=== PATIENT | female | born 1980 | race Caucasian/White ===

== ENCOUNTER 2016-09-10 13:27 | Emergency (ER) | payer OTHER ==
[~2016-09-10 13:27] MED LIST: IBUP600 PO; PERI8.6T PO; PREN0.01 PO
[2016-09-10 14:16] VITALS: BP 129/68; PULSE 80
[2016-09-10] MEDS ORDERED: CALNTAB (14:29)
--- NOTE | 2016-09-10 15:12 | PD ---
HPI Chief Complaint Spotting cramping Date Seen: Sep 10, 2016 Travel History International Travel<30 Days: No Contact w/Intl Traveler<30Days: No Known Affected Area: No History of Present Illness HPI This patient is a 36-year-old white female at [address] Zamora for care presents complaining of cramping and spotting she noticed last night and today. She denies period like bleeding or severe pain no leakage of fluid no discharge no itching odor or irritation. heart tones in the 140s by ultrasound today at the bedside Para: 1 : 2 History Obstetric History Obstetric History One vaginal delivery Social History Alcohol Use: No Tobacco Use: No Substance Abuse: No Allergies-Medications (Allergen,Severity, Reaction): Coded Allergies: No Known Allergies (Unverified , 09/10/16) Home Meds Active Scripts Sennosides-Docusate Sodium (Desi-Colace 8.6-50 mg)1 Tab Tab2 Tab PO Q12H PRN ( CONSTIPATION) #30 TAB Prov:Sharona Chandler MD 09/23/15 Ibuprofen (Motrin 600 Mg Tab)600 Mg [id number] Mg PO Q6H PRN ( CRAMPING) # 30 TAB Prov:Sharona Chandler MD 09/23/15 Reported Medications Vitamin (Calna)1 Tab Tab 09/10/16 Multivit/Min/Fol Ac/Iron/Pren ( Vit ( Plus)) Tab1 Tab PO DAILY 09/21/15 Review of Systems General / Constitutional: No: Fever, Weight Gain, Chills, Other Eyes: No: Diploplia, Blurred Vision, Visual changes, Pain, Photophobia HENT: No: Headaches, Vertigo, Lightheadedness Cardiovascular: No: Irregular Rhythm, Chest Pain or Discomfort, Palpitations, Tachycardia, Syncope, Varicosities, Edema, Cyanosis Respiratory: No: Cough, Short of Breath, Other Gastrointestinal: No: Nausea, Vomiting, Diarrhea Genitourinary: Vaginal Bleeding, No: Decreased Urinary Output, Oliguria Musculoskeletal: No: Limited ROM, Weakness, Cramping, Edema, Pain Skin: No Rash, No Itching, No Dryness, No Lumps, No Change in Pigmentation, No Change in Nails, No Alopecia, No Lesions Neurologic: No: Weakness, Dizziness, Syncope, Focal Abnormalities, Coordination Problem, Headache, Slurred Speech, Seizures Psychiatric: No: Depression, Suicidal Ideations, Homicidal Ideation Endocrine: No: Heat Intolerance, Cold Intolerance, Polydipsia, Polyuria, Other Physical Exam Vital Signs Date Time Temp Pulse Resp B/P Pulse Ox O2 Delivery O2 Flow Rate FiO2 09/10/16 14:16 80 129/68 Narrative GENERAL: Well-nourished, well-developed patient. SKIN: Warm and dry. HEAD: Normocephalic and atraumatic. EYES: No scleral icterus. No injection or drainage. ENT: No nasal drainage noted. Mucous membranes pink. Airway patent. NECK: Supple, trachea midline. No JVD. CARDIOVASCULAR: Regular rate and rhythm without murmurs, gallops, or rubs. RESPIRATORY: Breath sounds equal bilaterally. No accessory muscle use. BREASTS: Bilateral exam showed no masses , no retractions, no nipple discharge. ABDOMEN/GI: Abdomen soft, non-tender, bowel sounds present, no rebound, no guarding Gravid to [-19] weeks size Fundal Height: [-At umbilicus] GENITOURINARY: External Genitalia: intact and normal in appearance, no sign of bleeding or laceration, vagina is within normal limits no discharge cervix appears infection free and is closed thick and high BUS glands: [-] Cervix: [-] Closed, no bleeding noted Dilatation: [-] Closed Effacement: [-] thick Station: [-3] Presentation: [-vtx by US] Membranes: [intact ] Uterine Contractions: [-]none FHT's: Baseline: [144-] ] EXTREMITIES: No cyanosis or edema. BACK: Nontender without obvious deformity. No CVA tenderness. NEUROLOGICAL: Awake and alert. Motor and sensory grossly within normal limits. Five out of 5 muscle strength in all muscle groups. Normal speech. Data Data Orders Vital Signs (Adult) .ON ADMISSION (09/10/16 14:20) ^ Labor Status (09/10/16 14:20) Urinalysis - C+S If Indicated (09/10/16 14:20) Labs Ultrasound done at the bedside to rule out placenta previa. Placenta is posterior grade 0, not close to the cervical os, fetus is vertex, size equal dates ,active baby normal amniotic fluid MDM Interpretation(s) The patient is a 36-year-old white female followed Dr. Zamora for care now 19 weeks gestation presents with some spotting and cramping noted the last night and today. She has no ector blood per vagina speculum exam was done shows no blood in the vagina whatsoever cervix is normal there is no sign of infection or friable bleeding, urinalysis negative, ultrasound done to bedside showed posterior placenta and no previa noted normal 19 week fetus normal amniotic fluid volume and activity Plan Plan patient be discharged home to observe for any change in status her bleeding issues. She was informed that intercourse, activity, pelvic checks could all stimulated bleeding issue infection yeast infections etc. can cause bleeding, Diagnosis Diagnosis: Primary Impression: Spotting affecting in second trimester Additional Impression: Abdominal cramping affecting Disposition: DISCHARGE HOME Condition: Stable Rohit Ramos II, MD Sep 10, 2016 15:12
[2016-09-10 15:52] LABS: BACTERIA, URINE OCC /hpf; BLOOD, URINE NEG (NEG); GLUCOSE,URINE NEG (NEG); KETONE, URINE NEG (NEG); MUCUS URINE FEW /lpf (OCC); NITRITE,URINE NEG (NEG); SQUAMOUS EPITHELIAL CELL URINE 1 /hpf (0-5); URINE COLOR LIGHT-YELLOW (YELLW/STRAW)
[2016-09-10 15:53] LABS: COMMENT (UR) CULT NOT INDICATED; CULTURE IF INDICATED CULT NOT INDICATED
== END 2016-09-10 15:25 | disposition home or self-care (01) ==
LOC: HOBED 13:27
DX: O26.852 Spotting complicating pregnancy, second trimester (principal); Z3A.19 19 weeks gestation of pregnancy
CPT/HCPCS: 76815; 81001

== ENCOUNTER 2017-01-25 18:08 | Inpatient (IN) | payer OTHER ==
[~2017-01-25] VITALS: Ht 165.1 cm; Wt 94.3 kg
[~2017-01-25 18:08] MED LIST changes: +CALNTAB
[2017-01-25] MEDS ORDERED: SODIUM CHLOR 0.9% 1000 ML INJ 1,000 ML OTHER PRN (19:28)
[2017-01-25] MEDS ORDERED: LACTATED RINGER'S 1000 ML INJ 1,000 ML IV PRN (19:28)
[2017-01-25] MEDS ORDERED: SODIUM CHLORID 0.9% 500 ML INJ 500 ML IV PRN (19:30)
[2017-01-25] MEDS ORDERED: LIDOCAINE HCL 1% 50 ML VIAL I-DERMAL PRN (19:30)
[2017-01-25] MEDS ORDERED: DINOPROSTONE 10 MG VAG INSERT VAGINAL ONE (19:30)
[2017-01-25] MEDS ORDERED: OXYTOCIN 30 UNITS-500ML PREMIX 500 ML IV ONE (19:30)
[2017-01-25] MEDS ORDERED: LIDOCAINE HCL 1% 50 ML VIAL INFIL PRN (19:30)
[2017-01-25] MEDS ORDERED: VALT500T PO (19:30)
[2017-01-25] MEDS ORDERED: CITRIC ACID-SODIUM CITRATE LIQ 30 ML UDC PO SCH (19:30)
[2017-01-25] MEDS ORDERED: MINERAL OIL 10 ML VIAL TOPICAL PRN (19:30)
[2017-01-25] MEDS ORDERED: ONDANSETRON HCL 4 MG/2 ML VIAL IV PRN (19:30)
[2017-01-25 19:48] LABS: AUTOMATED NEUTROPHIL # 9.2 TH/MM3 (1.8-7.7); BASOPHIL # 0.1 TH/MM3 (0-0.2); BASOPHIL % 0.5 % (0.0-2.0); EOSINOPHIL # 0.1 TH/MM3 (0-0.4); EOSINOPHIL % 0.6 % (0.0-4.0); HEMATOCRIT 36.5 % (35.0-46.0); HEMO FLAGS DIFF FINAL; LYMPH % 16.7 % (9.0-44.0); MEAN CELL VOLUME 84.4 FL (80.0-100.0); MEAN CORPUSCULAR HEMOGLOBIN 28.2 PG (27.0-34.0); MEAN CORPUSCULAR HGB CONC 33.5 % (32.0-36.0); MONO % 6.9 % (0.0-8.0); NEUT % 75.3 % (16.0-70.0); PLATELET COUNT 209 TH/MM3 (150-450); RED BLOOD COUNT 4.32 MIL/MM3 (4.00-5.30); RED CELL DISTRIBUTION WIDTH 14.8 % (11.6-17.2); WHITE BLOOD COUNT 12.2 TH/MM3 (4.0-11.0)
[2017-01-25] MEDS ORDERED: SODIUM CHLOR 0.9% 1000 ML INJ 1,000 ML IV PRN (19:48)
[2017-01-25 19:57] LABS: BACTERIA, URINE OCC /hpf; BLOOD, URINE NEG (NEG); COMMENT (UR) CULT NOT INDICATED; CULTURE IF INDICATED CULT NOT INDICATED; GLUCOSE,URINE NEG (NEG); KETONE, URINE 40 mg/dL (NEG); MUCUS URINE FEW /lpf (OCC); NITRITE,URINE NEG (NEG); SQUAMOUS EPITHELIAL CELL URINE 10 /hpf (0-5); URINE COLOR YELLOW (YELLW/STRAW)
[2017-01-25] MEDS: LACTATED RINGER'S 1000 ML INJ 1,000 ML IV SCH (20:07)
[2017-01-25 20:14] VITALS: BP 146/93; PULSE 94
[2017-01-25 20:15] VITALS: RESP 18; TEMP 98.4
[2017-01-25 21:30] VITALS: RESP 18
[2017-01-25 23:08] VITALS: BP 133/62; PULSE 78; RESP 18
[2017-01-25 23:09] VITALS: TEMP 98.6
[2017-01-26] VITALS (52 sets, daily range): BP systolic 112–160; BP diastolic 56–93; PULSE 79–104; RESP 17–20; TEMP 97.8–98.7
--- NOTE | 2017-01-26 08:18 | PD.LABORPN ---
Subjective Subjective s/p cervidil for 12 hours Objective Vital Signs Vital Signs Date Time Temp Pulse Resp B/P Pulse Ox O2 Delivery O2 Flow Rate FiO2 01/26/17 07:14 89 116/56 01/26/17 07:13 98.1 18 01/26/17 06:30 18 01/26/17 05:00 98.7 18 01/26/17 04:59 84 144/67 01/26/17 02:02 18 Objective Pelvic Exam: Cervix: [-] Dilatation: [-] 2 Effacement: [-] 50 Station: [-] -2 Presentation: [-] vtx Membranes: [intact or ruptured] arom attempted, unsuccessful Uterine Contractions: [-] occas FHT's: Category: [-] 1 Baseline: [-] 130s Reactive: [-] R Variability: [-] good Decels: [-] Assessment/Plan Problem List: (1) state, incidental Assessment and Plan IUP at 39wks, suspect macrosomia , for IOL, GBS neg s/p cervidil, start pit, epidural prn anticipate Sierra Zamora MD Jan 26, 2017 08:18
[2017-01-26] MEDS ORDERED: OXYTOCIN 30 UNITS-500ML PREMIX 500 ML IV SCH (08:30)
--- NOTE | 2017-01-26 10:05 | MH ---
cc: JONATHAN AHUMADA DATE OF ADMISSION: 01/25/2017 HISTORY OF PRESENT ILLNESS She is a 35-year-old 2, para 1-0-0-1, intrauterine at 39 weeks, suspect macrosomia. care has been with [facility], uncomplicated. Group B strep was negative. PAST OB HISTORY Significant for one vaginal delivery, 7 pounds 15 ounces in 2016 at 41 weeks. PAST [employer] HISTORY Unremarkable. She had a normal Pap smear in October of 2015. PAST MEDICAL HISTORY She denies hypertension, diabetes or asthma. PAST SURGICAL HISTORY She denies. SOCIAL HISTORY She denies toxic habits. MEDICATIONS She takes vitamins and Valtrex. ALLERGIES She has no known drug allergies. PHYSICAL EXAMINATION VITAL SIGNS: Her vital signs are stable. She is afebrile. Blood pressure is 128/70. She is 213 pounds. HEAD/HEART/CHEST/LUNGS: Exams are within normal limits. ABDOMEN: Soft, nontender, gravid. Fundal height is 40 cm. VAGINAL EXAM: Cervix is 1 cm dilated, 50% effaced, vertex presentation. ASSESSMENT/PLAN She is [id number], 2, para 1, intrauterine at 39 weeks, suspect macrosomia. She has been counseled as to the risks, benefits, alternatives of Cervidil induction. All of her questions have been answered. MD SOHAM Manzanares/DAREN /2:13 PM /10:04 AM HOME
[2017-01-26] MEDS ORDERED: fentaNYL 2MCG-BUPIV 0.125% INJ 100 ML ONE (10:12)
[2017-01-26] MEDS ORDERED: ePHEDrine/NS 25 MG/5 ML SYR ONE (10:17)
[2017-01-26] MEDS ORDERED: ePHEDrine/NS 25 MG/5 ML SYR IV PRN (11:45)
[2017-01-26] MEDS ORDERED: DO NOT ADMINISTER ANTICOAGULANTS PRN (11:45)
[2017-01-26] MEDS ORDERED: NO SYSTEM NARCOTICS PRN (11:45)
[2017-01-26] MEDS ORDERED: fentaNYL 2MCG-BUPIV 0.125% 100 ML EPIDURAL SCH (11:45)
[2017-01-26] MEDS: LACTATED RINGER'S 1000 ML INJ 1,000 ML IV SCH (13:02)
--- NOTE | 2017-01-26 14:07 | PD.OB.DELI ---
Anesthesia: Epidural Episiotomy: Midline Vaginal Delivery: Normal Presentation: Occiput anterior (WILLIAM) Nuchal Cord: x1 Delayed cord clamping (45 sec): No : Female One Minute : 8 Five Minute : 9 Placenta: Spontaneous delivery Laceration: Episiotomy Repair: Chromic interrupted, Vicryl running Additional Information pt delivered by Olivia Moralez MD Jan 26, 2017 14:07
[2017-01-26] MEDS ORDERED: ZOLPIDEM TARTRATE 5 MG TAB PO PRN (14:15)
[2017-01-26] MEDS ORDERED: ALUMINUM/MAGNESIUM/SIMETH 30 ML CUP PO PRN (14:15)
[2017-01-26] MEDS ORDERED: BENZOCAINE 20% TOPICAL SPRAY 60 ML CAN TOPICAL PRN (14:15)
[2017-01-26] MEDS ORDERED: OXYTOCIN 30 UNITS-500ML PREMIX 500 ML IV ONE (14:15)
[2017-01-26] MEDS ORDERED: DOCUSATE SODIUM 50 MG/SENNA 8.6 MG TAB PO PRN (14:15)
[2017-01-26] MEDS ORDERED: ONDANSETRON ODT 4 MG TAB PO PRN (14:15)
[2017-01-26] MEDS ORDERED: WITCH HAZEL 50%/GLYCERIN 12.5% 40 PAD JAR TOPICAL PRN (14:15)
[2017-01-26] MEDS ORDERED: SODIUM CHLORIDE 0.9% FLUSH 10 ML FLUSH IV FLUSH PRN (14:15)
[2017-01-26] MEDS: ACETAMINOPHEN 325 MG TAB PO PRN ×2 (14:32→19:10)
[2017-01-26] MEDS ORDERED: DIPHTH/TETANUS/ACEL PERTUSSIS (BOOSTER) 0.5 ML VIAL/PFS IM ONE (16:00)
[2017-01-26] MEDS ORDERED: MEASLES, MUMPS, RUBELLA VACCINE 0.5 ML VIAL SQ ONE (16:00)
[2017-01-26] MEDS: IBUPROFEN 600 MG TAB PO PRN (19:10)
[2017-01-26] MEDS ORDERED: SODIUM CHLORIDE 0.9% FLUSH 10 ML FLUSH IV FLUSH SCH (21:00)
[2017-01-27] MEDS: IBUPROFEN 600 MG TAB PO PRN ×2 (01:05→10:54)
[2017-01-27] MEDS: ACETAMINOPHEN 325 MG TAB PO PRN ×2 (01:05→10:54)
[2017-01-27 08:15] VITALS: BP 128/82; PULSE 80; RESP 16; TEMP 97.7
--- NOTE | 2017-01-27 08:24 | HHI.OB ---
Subjective Post Day: 1 Remarks nursing well no issues Objective Vitals/I&O Vital Signs Date Time Temp Pulse Resp B/P Pulse Ox O2 Delivery O2 Flow Rate FiO2 01/26/17 20:45 97.8 89 20 121/93 01/26/17 20:25 98.2 18 01/26/17 20:25 101 130/82 01/26/17 16:57 100 18 134/83 01/26/17 15:16 93 112/83 01/26/17 15:15 17 01/26/17 14:46 90 149/92 01/26/17 14:42 17 01/26/17 14:30 92 147/88 01/26/17 14:21 97.9 18 01/26/17 14:15 18 01/26/17 14:15 90 137/72 01/26/17 14:13 94 144/85 01/26/17 13:41 91 151/91 01/26/17 13:40 93 01/26/17 13:35 104 01/26/17 13:30 101 160/92 01/26/17 13:30 92 01/26/17 13:25 95 01/26/17 13:20 89 01/26/17 13:03 18 01/26/17 13:00 156/85 01/26/17 13:00 88 01/26/17 13:00 88 01/26/17 12:55 90 01/26/17 12:50 83 01/26/17 12:45 98.0 01/26/17 12:30 83 01/26/17 12:30 85 147/91 01/26/17 12:25 84 01/26/17 12:20 86 01/26/17 12:00 83 01/26/17 12:00 85 149/89 01/26/17 11:55 86 01/26/17 11:50 91 01/26/17 11:30 93 141/82 01/26/17 11:30 90 01/26/17 11:25 91 01/26/17 11:20 87 01/26/17 11:00 86 01/26/17 11:00 89 137/70 01/26/17 11:00 89 137/70 01/26/17 10:55 87 141/69 01/26/17 10:55 85 01/26/17 10:55 87 141/69 01/26/17 10:50 85 142/71 01/26/17 10:50 87 01/26/17 10:50 85 142/71 01/26/17 10:47 81 148/68 01/26/17 10:45 85 01/26/17 10:40 91 01/26/17 10:40 89 151/92 01/26/17 10:35 91 01/26/17 10:30 87 01/26/17 10:30 82 152/90 01/26/17 10:25 85 01/26/17 10:20 91 01/26/17 10:00 82 140/86 01/26/17 09:50 98.0 01/26/17 09:31 79 133/62 01/26/17 09:20 98.0 01/26/17 09:00 85 125/64 01/26/17 08:51 84 131/74 Objective Remarks GENERAL: Well-nourished, well-developed patient. CARDIOVASCULAR: Regular rate and rhythm without murmurs, gallops, or rubs. RESPIRATORY: Breath sounds equal bilaterally. No accessory muscle use. ABDOMEN/GI: Abdomen soft, non-tender. Fundus: Firm, non-tender at umbilicus. GENITOURINARY: Light to moderate bleeding. EXTREMITIES: No cyanosis or edema, non-tender, without signs of DVT. Medications and IVs Current Medications Medications (Trade) Dose Ordered Sig/Su Route Start Time Stop Time Status Last Admin (NS Flush) 2 ml BID IV FLUSH 01/26/17 21:00 (NS Flush) 2 ml UNSCH PRN IV FLUSH 01/26/17 14:15 (Tylenol) 650 mg Q4H PRN PO 01/26/17 14:15 01/27/17 01:05 (Motrin) 600 mg Q6H PRN PO 01/26/17 14:15 01/27/17 01:05 (Americaine 20% Top Spr) 1 spray Q4H PRN TOPICAL 01/26/17 14:15 01/26/17 20:25 (Tucks Pads) 1 applic QID PRN TOPICAL 01/26/17 14:15 01/26/17 20:25 (Desi-Colace) 2 tab Q12H PRN PO 01/26/17 14:15 (Ambien) 5 mg HS PRN PO 01/26/17 14:15 (Mag-Al Plus Susp Liq) 15 ml Q8H PRN PO 01/26/17 14:15 (Zofran Odt) 4 mg Q6H PRN PO 01/26/17 14:15 Assessment/Plan Problem List: (1) state, incidental Assessment and Plan PPD 1 doing well discharge PPD2 Valeria Arvizu MD Jan 27, 2017 08:24
--- NOTE | 2017-01-27 13:54 | HHI.DS ---
Admission Date Jan 25, 2017 at 18:08 Admitting Diagnosis Diagnosis: Vaginal Delivery: Normal : Female Pt Condition on Discharge: Good Discharge Disposition: Discharge Home Discharge Instructions Diet Instructions: As Tolerated, No Restrictions Activities You Can Perform: Shower Only-No Bath Activities to Avoid: Driving for 24 hrs, Prolonged Standing, Strenuous Activity , Sexual Activity Misha Montanez MD Jan 27, 2017 13:53
== END 2017-01-27 16:55 | disposition home or self-care (01) | DRG 775 ==
LOC: H2EB 18:08 → H1EA 01-26 16:30
PROVIDERS: ADMIT Obstetrics & Gynecology; ATTEND Obstetrics & Gynecology
PROC: 10E0XZZ Delivery of Products of Conception, External Approach (ICD-10-PCS; principal; 2017-01-26)
PROC: 0W8NXZZ Division of Female Perineum, External Approach (ICD-10-PCS; 2017-01-26)
DX: O69.81X0 Labor and delivery complicated by cord around neck, without compression, not applicable or unspecified (principal); Z37.0 Single live birth; Z3A.39 39 weeks gestation of pregnancy
CPT/HCPCS: 81001; 85025; 86850; 86900; 86901; 90715; J2405; J2590; J7120